=== PATIENT | female | born 1950 | race Caucasian/White ===

== ENCOUNTER 2018-04-16 20:25 | Inpatient (IN) | payer OTHER ==
[~2018-04-16] VITALS: Ht 152.4 cm; Wt 79.4 kg
[~2018-04-16 20:25] MED LIST: IRON325 M1 PO; LOPRESSOR25 MG PO
[2018-04-17 10:13] VITALS: BP 177/82
[2018-04-17 16:17] VITALS: BP 172/76
[2018-04-17 18:28] VITALS: BP 165/82
[2018-04-17 20:05] VITALS: BP 186/83
[2018-04-18 00:08] VITALS: BP 149/70
[2018-04-18 04:29] VITALS: BP 157/70
[2018-04-18 06:07] LABS: HEMATOCRIT 35.4 % (36.0-46.0); HEMOGLOBIN 12.1 G/DL (11.9-15.5); MCV 93.9 FL (83-99)
[2018-04-18 06:30] LABS: CHLORIDE 104 MEQ/L (99-109); CREATININE 0.7 MG/DL (0.6-1.3); GFR ESTIMATE (CALCULATED) > 59 mL/min/; GLUCOSE 109 mg/dL (70-99); POTASSIUM 4.3 MEQ/L (3.7-5.4); SODIUM 141 MEQ/L (136-147); UREA NITROGEN (BUN) 13 mg/dL (9-23)
[2018-04-18 07:46] VITALS: BP 137/60
[2018-04-18 11:59] VITALS: BP 141/63
[2018-04-18 15:54] VITALS: BP 160/73
[2018-04-18 20:15] VITALS: BP 148/70
[2018-04-19] VITALS: BP 178/76
[2018-04-19 03:30] VITALS: BP 163/68
[2018-04-19 06:39] LABS: HEMATOCRIT 36.6 % (36.0-46.0); HEMOGLOBIN 12.1 G/DL (11.9-15.5); MCV 94.3 FL (83-99)
[2018-04-19 08:18] VITALS: BP 173/74
[2018-04-19] MEDS ORDERED: CELECOXIB200 MG PO (08:28)
[2018-04-19] MEDS ORDERED: ELIQUIS2.5 MG PO (08:28)
[2018-04-19] MEDS ORDERED: HYDROCODON-ACE1 EAC7 PO (08:28)
[2018-04-19 12:02] VITALS: BP 138/67
== END 2018-04-19 13:00 | DRG 470 ==
LOC: ENRESERV 20:25 → 2SOUTH 04-17 08:44 → 3WEST 04-17 15:58
PROVIDERS: Orthopaedic Surgery
PROC: 0SRD0J9 Replacement of Left Knee Joint with Synthetic Substitute, Cemented, Open Approach (ICD-10-PCS; principal; 2018-04-17)
DX: M17.12 Unilateral primary osteoarthritis, left knee (principal)
CPT/HCPCS: 80048; 85014; 85018; 97530 GO; C1713; J0131; J0690; J1885; J2250; J2405; J2795; J7050; S0020